=== PATIENT | female | born 1950 | race African-American/Black ===

== ENCOUNTER 2019-01-13 05:30 | Inpatient (IN) | payer MEDICARE ==
[~2019-01-13] VITALS: Ht 157.5 cm; Wt 152.0 kg
[2019-01-13] MEDS ORDERED: ALBUTEROL SULF 2.5 MG/0.5ML(0.5%) NEB SOLN NEB ONE (05:45)
[2019-01-13] MEDS ORDERED: IPRATROPIUM BROM 0.5 MG/2.5ML INH SOL NEB ONE (05:45)
[2019-01-13] MEDS ORDERED: methylPREDNISolone SOD SUCC 125 MG/2 ML VL IV ONE (05:45)
[2019-01-13 06:12] LABS: Basophils # (auto) 0 uL; Basophils % (auto) 0.3 % (0.0-2.0); Eosinophils # (auto) 0.1 uL; Eosinophils % (auto) 1.1 % (0.0-7.0); Hematocrit 39.7 % (36.0-46.0); Lymphocytes # (auto) 0.5 uL; Lymphocytes % (auto) 7.1 % (10.0-50.0); Mean Corpuscular Hemoglobin 31.1 pg (28.0-32.0); Mean Corpuscular Hgb Conc. 32.8 g/dL (32.0-36.0); Mean Corpuscular Volume 94.9 fL (80.0-100.0); Monocytes # (auto) 0.4 uL; Neutrophils # (auto) 6.4 uL; Neutrophils % (auto) 86.5 % (37.0-80.0); Platelet Count (auto) 172 10^3/uL (140-450); Red Blood Cells 4.18 10^6/uL (4.0-5.20); White Blood Cell 7.4 10^3/uL (4.4-10.8)
[2019-01-13 06:24] LABS: Albumin 3.1 g/dL (3.4-5.0); Calcium 7.9 mg/dL (8.5-10.1); Potassium 3.8 mmol/L (3.5-5.1)
[2019-01-13 06:28] LABS: BUN/Creatinine Ratio 14.3; Bilirubin, Total 0.5 mg/dL (0.2-1.0); Total Protein 7.2 g/dL (6.4-8.2)
[2019-01-13 06:52] LABS: Prothrombin Time 10.7 sec (9.27-12.13)
[2019-01-13 07:41] LABS: Lactic Acid w/Reflex 2.2 mmol/L (0.4-2.0)
[2019-01-13] MEDS ORDERED: PIPERACILLIN-TAZOB 3.375GM 100 ML IV ONE (09:30)
[2019-01-13] MEDS ORDERED: VANCOMYCIN 1GM/250ML 250 ML IV ONE (09:30)
[2019-01-13] MEDS ORDERED: FUROSEMIDE 40 MG/4 ML VIAL IV ONE ×2 (09:30→13:15)
[2019-01-13] MEDS ORDERED: ACETAMINOPHEN 500 MG TAB PO PRN (12:45)
[2019-01-13] MEDS ORDERED: LACTULOSE 20Gm/30ML SOLN PO PRN (12:45)
[2019-01-13] MEDS ORDERED: PROMETHAZINE HCL 25 MG/ML 1ML IV PRN (12:45)
[2019-01-13] MEDS ORDERED: HYDROcodone-ACET 5/325MG TAB PO PRN (12:45)
[2019-01-13] MEDS ORDERED: DEXTROSE (50%) 50ML SYRG IV PRN (12:45)
[2019-01-13] MEDS ORDERED: MORPHINE SULFATE 4 MG/ML SYR/VIAL IV PRN ×2 (12:45)
[2019-01-13] MEDS ORDERED: NITROGLYCERIN 0.4 MG SL TAB SL PRN (12:45)
[2019-01-13] MEDS ORDERED: ASPirin 81 mg TAB PO ONE (13:15)
[2019-01-13] MEDS ORDERED: POTASSIUM CHL 20 Meq TABLET PO ONE (13:15)
[2019-01-13] MEDS ORDERED: PANTOPRAZOLE 40 MG TAB PO ONE (13:15)
[2019-01-13] MEDS ORDERED: ENALAPRIL MALEATE 2.5 MG TAB PO ONE (13:15)
[2019-01-13] MEDS ORDERED: CARVEDILOL 3.125 MG TAB PO ONE (13:15)
[2019-01-13] MEDS ORDERED: NITROGLYCERIN 0.2MG/HR TOPICAL PATCH TD ONE (13:15)
[2019-01-13] MEDS ORDERED: ENOXAPARIN SOD 40 MG/0.4 ML SYRINGE SC ONE (13:15)
[2019-01-13] MEDS ORDERED: METOLAZONE 5 MG TAB PO ONE (13:30)
[2019-01-13] MEDS: SODIUM CHLOR 0.9% PF (SALINE LOCK) 10ML VIAL/SYR IV SCH ×2 (13:49→22:11)
[2019-01-13 14:26] LABS: Urine Bacteria NONE SEEN /hpf (None Seen); Urine Blood Negative /uL (Negative); Urine Specific Gravity 1.014 (1.001-1.035); Urine WBC 1 /hpf (0 - 5)
[2019-01-13] MEDS ORDERED: cefTRIAXone 1GM/50ML D5W 50 ML IV ONE (14:30)
[2019-01-13] MEDS ORDERED: CLINDAMYCIN 600MG IV 50 ML IV ONE (14:30)
[2019-01-13 14:48] LABS: Alcohol, Urine < 3.0 mg/dL (0-5); Amphetamine Screen, Urine NEGATIVE (NEGATIVE); Barbiturate Scree,Urine NEGATIVE (NEGATIVE); Benzodiazephine Screen, Urine NEGATIVE (NEGATIVE); Cannabinoid Screen, Urine NEGATIVE (NEGATIVE); Cocaine Screen, Urine NEGATIVE (NEGATIVE); Opiate Scree,Urine NEGATIVE (NEGATIVE); Phencyclidine Screen, Urine NEGATIVE (NEGATIVE)
[2019-01-13] MEDS: ACCU-CHEK COMFORT CURVE STRIP VI SCH ×2 (17:09→22:10)
[2019-01-13] MEDS: InsuLIN REG 1unit/0.01ml Soln (100units/ml) SC SCH ×2 (17:16→22:00)
[2019-01-13] MEDS: FUROSEMIDE 40 MG/4 ML VIAL IV SCH (18:49)
[2019-01-13 20:00] VITALS: BP 135/70
--- NOTE | 2019-01-13 21:16 | NUR ---
MED REC PATIENT UNABLE TO VERIFY ANY MEDICATIONS. PATIENT DOES NOT KNOW THE NAMES OF HER HOME MEDICATIONS. PER PATIENT, HER CAREGIVER, ARSALAN TO BRING IN THE LIST OF HER HOME MEDICATIONS TOMORROW.
[2019-01-13 22:00] VITALS: BP 135/70
[2019-01-13] MEDS ORDERED: CARVEDILOL 3.125 MG TAB PO SCH (22:00)
[2019-01-13] MEDS: CLINDAMYCIN 600MG IV 50 ML IV SCH (22:11)
[2019-01-13] MEDS: ATORVASTATIN 20 MG TAB PO SCH (22:16)
--- NOTE | 2019-01-14 00:29 | NUR ---
Positive Blood Cultures Received a call from [facility] that the patient's blood culture came back positive. The patient has gram + rods. Called and spoke to the hospitalist about the positive cultures. Explained the patient was already receiving Cleocin 600mg which she got at 2200hrs. He seemed satisfied with that antibiotic, no new orders given. Will continue to monitor.
[2019-01-14 05:00] VITALS: BP 131/69
--- NOTE | 2019-01-14 05:37 | NUR ---
shift note The patient slept most of the shift, until about 0300hrs. Since then she has been up stressed about her home situation. 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 I told her we will work on helping her with the issue first thing in the morning. I will put in a social service consult as well due to the fact that she doesn't seem to care for herself, let alone other people. Will continue to monitor the situation.
[2019-01-14 05:50] LABS: Basophils # (auto) 0 uL; Basophils % (auto) 0.1 % (0.0-2.0); Eosinophils # (auto) 0 uL; Eosinophils % (auto) 0.1 % (0.0-7.0); Hemoglobin 11.6 g/dL (12.2-16.2); Lymphocytes # (auto) 0.6 uL; Lymphocytes % (auto) 7.2 % (10.0-50.0); Mean Corpuscular Hemoglobin 30.8 pg (28.0-32.0); Mean Corpuscular Hgb Conc. 33.1 g/dL (32.0-36.0); Monocytes % (auto) 11.4 % (0.0-12.0); Neutrophils # (auto) 7.2 uL; Neutrophils % (auto) 81.2 % (37.0-80.0); Platelet Count (auto) 194 10^3/uL (140-450); Red Blood Cells 3.76 10^6/uL (4.0-5.20); Red Cell Distribution Width 14.4 % (11.8-14.3); White Blood Cell 8.9 10^3/uL (4.4-10.8)
[2019-01-14] MEDS: SODIUM CHLOR 0.9% PF (SALINE LOCK) 10ML VIAL/SYR IV SCH ×3 (06:00→22:27)
[2019-01-14 06:14] LABS: Albumin 2.6 g/dL (3.4-5.0); Potassium 3.9 mmol/L (3.5-5.1)
[2019-01-14 06:18] LABS: BUN/Creatinine Ratio 16.1; Bilirubin, Total 0.4 mg/dL (0.2-1.0); Total Protein 6.2 g/dL (6.4-8.2)
[2019-01-14] MEDS: ACCU-CHEK COMFORT CURVE STRIP VI SCH ×4 (06:37→22:00)
[2019-01-14] MEDS: InsuLIN REG 1unit/0.01ml Soln (100units/ml) SC SCH ×4 (06:37→22:00)
[2019-01-14] MEDS: CLINDAMYCIN 600MG IV 50 ML IV SCH ×3 (06:38→22:25)
[2019-01-14] MEDS: FUROSEMIDE 40 MG/4 ML VIAL IV SCH ×2 (06:39→17:39)
--- NOTE | 2019-01-14 07:20 | NUR ---
Opening Shift Note Assumed care of patient, awake and alert. No S/S of distress/SOB or pain. Instructed on POC-social service consult, continue IV antibiotics. Patient informed to call for assist PRN, will continue to monitor for changes Q1hr and PRN.
[2019-01-14 08:43] VITALS: BP 118/62
[2019-01-14] MEDS: cefTRIAXone 1GM/50ML D5W 50 ML IV SCH (08:59)
[2019-01-14] MEDS: ASPirin 81 mg TAB PO SCH (10:38)
[2019-01-14] MEDS: PANTOPRAZOLE 40 MG TAB PO SCH (10:38)
[2019-01-14] MEDS: POTASSIUM CHL 20 Meq TABLET PO SCH (10:38)
[2019-01-14] MEDS: METOLAZONE 5 MG TAB PO SCH (10:39)
[2019-01-14] MEDS: ENALAPRIL MALEATE 2.5 MG TAB PO SCH (10:39)
[2019-01-14] MEDS: ENOXAPARIN SOD 40 MG/0.4 ML SYRINGE SC SCH (10:40)
[2019-01-14] MEDS: NITROGLYCERIN 0.2MG/HR TOPICAL PATCH TD SCH (10:40)
--- NOTE | 2019-01-14 12:30 | NUR ---
Mindy Finney said she called APS and asked for help regarding patient's concern for some family members at home who has special needs and no one is able to take care of them. Mindy also spoke with Dr. Tabor regarding this concern of the patient.
[2019-01-14 13:00] VITALS: BP 121/65
[2019-01-14 17:00] VITALS: BP 105/68
--- NOTE | 2019-01-14 19:00 | NUR ---
Closing Note Patient is resting in bed, no complaints of pain and SOB and not in distress. Call light within reach and bed in lowest position. Care endorsed to night RN.
[2019-01-14] MEDS ORDERED: AMLO5TAB13 PO (20:01)
[2019-01-14] MEDS ORDERED: FURO40TA4 PO (20:01)
[2019-01-14] MEDS ORDERED: OMEP20TA PO (20:02)
[2019-01-14] MEDS ORDERED: ENA10T PO (20:02)
[2019-01-14] MEDS ORDERED: IBUP800T24 PO (20:03)
[2019-01-14 22:00] VITALS: BP 116/72
[2019-01-14] MEDS: ATORVASTATIN 20 MG TAB PO SCH (22:26)
[2019-01-15 05:00] VITALS: BP 127/67
--- NOTE | 2019-01-15 05:17 | NUR ---
Shift Note The patient had a restless night, seemed to be uncomfortable most of the night. She complained of cramping in her legs. Explained that she needed to move around more despite being in bed as she is just laying down and causing the cramping. The patient also had a hard time sleeping but asked too late to get a sleep aid. Otherwise she tolerated her treatments well, no real complaints of pain. Will continue to monitor.
[2019-01-15] MEDS: CLINDAMYCIN 600MG IV 50 ML IV SCH ×3 (06:21→21:31)
[2019-01-15] MEDS: FUROSEMIDE 40 MG/4 ML VIAL IV SCH ×2 (06:22→17:42)
[2019-01-15] MEDS: SODIUM CHLOR 0.9% PF (SALINE LOCK) 10ML VIAL/SYR IV SCH ×3 (06:29→21:40)
[2019-01-15] MEDS: ACCU-CHEK COMFORT CURVE STRIP VI SCH (06:32)
[2019-01-15] MEDS: InsuLIN REG 1unit/0.01ml Soln (100units/ml) SC SCH (06:32)
--- NOTE | 2019-01-15 08:00 | NUR ---
Opening Shift Note Assumed care of patient, sleeping and appears comfortable. No S/S of distress/SOB or pain. Will continue to monitor for changes Q1hr and PRN.
[2019-01-15] MEDS ORDERED: TIMO0.5S38 EACHEYE (09:58)
[2019-01-15] MEDS ORDERED: INFLUENZA QUAD 2018-2019 0.5 ML SYRG IM ONE ×2 (10:00→10:30)
[2019-01-15] MEDS ORDERED: PNEUMOCOCCAL VACC POLYS 25 MCG/0.5 ML VIAL IM ONE (10:00)
[2019-01-15] MEDS: cefTRIAXone 1GM/50ML D5W 50 ML IV SCH (10:05)
[2019-01-15] MEDS: ENOXAPARIN SOD 40 MG/0.4 ML SYRINGE SC SCH (10:06)
[2019-01-15] MEDS: POTASSIUM CHL 20 Meq TABLET PO SCH (10:06)
[2019-01-15] MEDS: ENALAPRIL MALEATE 2.5 MG TAB PO SCH (10:06)
[2019-01-15] MEDS: ASPirin 81 mg TAB PO SCH (10:06)
[2019-01-15] MEDS: PANTOPRAZOLE 40 MG TAB PO SCH (10:06)
[2019-01-15] MEDS: METOLAZONE 5 MG TAB PO SCH (10:07)
[2019-01-15] MEDS: NITROGLYCERIN 0.2MG/HR TOPICAL PATCH TD SCH (10:08)
[2019-01-15] MEDS ORDERED: LATA0.0015 OP (10:27)
[2019-01-15 13:00] VITALS: BP 133/70
--- NOTE | 2019-01-15 15:16 | NUR ---
SOB PATIENT IS ABLE TO GET UP TO THE BSC WITH ASSISTANCE. SHE GETS VERY SOB WITH ACTIVITY AND TAKES A LITTLE TIME TO RECOVER. LUNGS CLEAR, PATIENT IS ABLE TO BRING UP PHLEGM ON HER OWN. O2 DROPS A LITTLE WHEN SHE IS COUGHING BUT COMES BACK UP INTO THE LOW 90'S WITH REST.
[2019-01-15] MEDS: TIMOLOL MAL 0.5% OPTH(EYE) SOL 5ML EACHEYE SCH ×2 (16:35→21:32)
[2019-01-15 17:00] VITALS: BP 128/75
--- NOTE | 2019-01-15 19:05 | NUR ---
Opening Shift Note Assumed care of patient from day shift RN Tina. Pt is awake and alert and oriented x4. No S/S of distress/SOB or pain. Pt on 3L Oxymizer, respirations even equal and unlabored. Frederick catheter intact, patent and draining to gravity. Rectal tube intact, patent and draining. Instructed on POC and to call for assist PRN, will continue to monitor for changes Q1hr and PRN.
[2019-01-15] MEDS: ATORVASTATIN 20 MG TAB PO SCH (21:31)
[2019-01-15] MEDS: LATANOPROST 0.005 % OPTH(EYE) SOL 2.5ML EACHEYE SCH (21:40)
[2019-01-15 22:00] VITALS: BP 118/64
--- NOTE | 2019-01-15 22:20 | NUR ---
PT C/O LEAKING RECTAL TUBE TURNED PATIENT ON SIDE, RECTAL TUBE LEAKING. ADDED 20 ML AIR. PATIENT CLEANED AND LINENS CHANGED. WILL CONTINUE TO MONITOR FOR LEAKING.
[2019-01-16] MEDS: TEMAZEPAM 15 MG CAP PO PRN ×2 (00:47→22:10)
--- NOTE | 2019-01-16 02:09 | NUR ---
RECTAL TUBE PT C/O LEAKING FROM RECTAL TUBE. SMALL AMOUNT OF BROWN LIQUID STOOL LEAKING. CLEANED PATIENT AND CHANGED LINENS. WILL CONTINUE TO MONITOR FOR LEAKING.
[2019-01-16] MEDS: SODIUM CHLOR 0.9% PF (SALINE LOCK) 10ML VIAL/SYR IV SCH ×3 (05:14→21:58)
[2019-01-16] MEDS: CLINDAMYCIN 600MG IV 50 ML IV SCH ×3 (05:14→21:58)
[2019-01-16] MEDS: FUROSEMIDE 40 MG/4 ML VIAL IV SCH ×2 (05:15→18:05)
[2019-01-16 05:30] VITALS: BP 140/71
[2019-01-16] MEDS: LORazepam 0.5 MG TAB PO PRN (07:05)
--- NOTE | 2019-01-16 08:00 | NUR ---
Opening Shift Note Assumed care of patient, sleeping, appears comfortable. timber surveyor nurse reported patient was anxious this morning and was given PRN medication to help her relax. Patient has been worried about special needs children at home that have autism. No S/S of distress/SOB or pain. Will continue to monitor for changes Q1hr and PRN.
[2019-01-16] MEDS: cefTRIAXone 1GM/50ML D5W 50 ML IV SCH (08:48)
[2019-01-16] MEDS: ENOXAPARIN SOD 40 MG/0.4 ML SYRINGE SC SCH (08:49)
[2019-01-16] MEDS: NITROGLYCERIN 0.2MG/HR TOPICAL PATCH TD SCH (08:49)
[2019-01-16] MEDS: PANTOPRAZOLE 40 MG TAB PO SCH (08:50)
[2019-01-16] MEDS: POTASSIUM CHL 20 Meq TABLET PO SCH (08:50)
[2019-01-16] MEDS: TIMOLOL MAL 0.5% OPTH(EYE) SOL 5ML EACHEYE SCH ×2 (08:50→21:58)
[2019-01-16] MEDS: METOLAZONE 5 MG TAB PO SCH (08:50)
[2019-01-16] MEDS: ASPirin 81 mg TAB PO SCH (08:50)
[2019-01-16] MEDS: ENALAPRIL MALEATE 2.5 MG TAB PO SCH (08:50)
[2019-01-16 09:09] VITALS: BP 138/71
[2019-01-16 13:02] VITALS: BP 120/74
[2019-01-16] MEDS: ATORVASTATIN 20 MG TAB PO SCH (21:58)
[2019-01-16] MEDS: LATANOPROST 0.005 % OPTH(EYE) SOL 2.5ML EACHEYE SCH (21:58)
[2019-01-16 22:00] VITALS: BP 135/74
--- NOTE | 2019-01-16 23:04 | NUR ---
RASHAD CALLED HR 180 HR 180'S FOR APPROXIMATELY 2 MINUTES, HR NOW IN 80'S. PATIENT RESTING IN BED, O2 FOUND MISPLACED, REAPPLIED O2 3L OXYMIZER. NO S/S DISTRESS. WILL CONTINUE TO MONITOR.
--- NOTE | 2019-01-17 00:35 | NUR ---
PATIENT C/O ANXIETY PT FOUND WITH O2 OXYMIZER OFF. PLACED PT BACK ON 3L OXYMIZER, EDUCATED PT ON IMPORTANCE OF KEEPING OXYGEN ON. ADMINISTERED ATIVAN. PT C/O HAVING HALLUCINATIONS WHEN SHE IS GETTING ANXIOUS, EDUCATED PT ON IMPORTANCE OF OXYGEN AND THE EFFECTS IT CAN HAVE ON THE BRAIN RELATING TO HALLUCINATIONS AND ANXIETY. PT VERBALIZED UNDERSTANDING. WILL CONTINUE TO MONITOR.
[2019-01-17] MEDS: LORazepam 0.5 MG TAB PO PRN ×2 (00:44→20:07)
[2019-01-17 05:21] VITALS: BP 146/74
[2019-01-17] MEDS: FUROSEMIDE 40 MG/4 ML VIAL IV SCH ×2 (05:49→18:07)
[2019-01-17] MEDS: CLINDAMYCIN 600MG IV 50 ML IV SCH ×3 (05:49→22:28)
[2019-01-17] MEDS: SODIUM CHLOR 0.9% PF (SALINE LOCK) 10ML VIAL/SYR IV SCH ×3 (05:49→22:29)
--- NOTE | 2019-01-17 07:50 | NUR ---
OPENING SHIFT NOTE ASSUMED CARE OF PATIENT. PATIENT AWAKE AND ALERT SITTING UP IN BED. NO S/S OF DISTRESS OR SOB NOTED. BED IN LOWEST LOCKED POSITION, CALL LIGHT WITHIN REACH. WILL CONTINUE TO MONITOR.
[2019-01-17 09:00] VITALS: BP 125/70
--- NOTE | 2019-01-17 09:10 | NUR ---
AT BEDSIDE DR Edwin SOSA AT BEDSIDE AT THIS TIME. NEW ORDERS RECEIVED. CONTINUING TO MONITOR.
--- NOTE | 2019-01-17 09:20 | NUR ---
CULTURE/SENSITIVITY CALLED LAB AND SPOKE WITH YELITZA. PER YELITZA LAB SENT OUT SENSITIVITY AND WOULD TAKE ABOUT X1 WEEK FOR RESULTS. WILL CONTINUE TO MONITOR.
[2019-01-17] MEDS: TIMOLOL MAL 0.5% OPTH(EYE) SOL 5ML EACHEYE SCH ×2 (09:56→22:28)
[2019-01-17] MEDS: ENOXAPARIN SOD 40 MG/0.4 ML SYRINGE SC SCH (09:58)
[2019-01-17] MEDS: PANTOPRAZOLE 40 MG TAB PO SCH (09:58)
[2019-01-17] MEDS: POTASSIUM CHL 20 Meq TABLET PO SCH (09:58)
[2019-01-17] MEDS: METOLAZONE 5 MG TAB PO SCH (09:58)
[2019-01-17] MEDS: ASPirin 81 mg TAB PO SCH (09:58)
[2019-01-17] MEDS: cefTRIAXone 1GM/50ML D5W 50 ML IV SCH (09:58)
[2019-01-17] MEDS: ENALAPRIL MALEATE 2.5 MG TAB PO SCH (09:59)
[2019-01-17] MEDS: NITROGLYCERIN 0.2MG/HR TOPICAL PATCH TD SCH (09:59)
[2019-01-17 13:24] VITALS: BP 126/73
--- NOTE | 2019-01-17 14:43 | NUR ---
Nutrition Assessment Notes please see attached link for complete assessment Est. Needs ABW [id number] kcal (11-17 kcal/kgABW), 80-101 gms pro (0.8-1.0 gms/kgABW d/t elev RFT). Will continue to monitor pertinent labs and reassess nutrient needs prn Addendum: 01/17/19 at [address] Amended: Links added.
[2019-01-17 17:00] VITALS: BP 114/75
--- NOTE | 2019-01-17 19:30 | NUR ---
END OF SHIFT NOTE PATIENT AWAKE AND ALERT SITTING UP IN BED. NO S/S OF DISTRESS OR SOB. BED IN LOWEST LOCKED POSITION, CALL LIGHT WITHIN REACH. CARE ENDORSED TO NOC RN.
--- NOTE | 2019-01-17 19:30 | NUR ---
RECEIVED PT FROM DAY RN POC REVIEWED
[2019-01-17 21:00] VITALS: BP 122/69
--- NOTE | 2019-01-17 22:20 | NUR ---
resting with eyes closed, call light within reach bed alarm intact
[2019-01-17] MEDS: LATANOPROST 0.005 % OPTH(EYE) SOL 2.5ML EACHEYE SCH (22:28)
[2019-01-17] MEDS: ATORVASTATIN 20 MG TAB PO SCH (22:29)
[2019-01-18] MEDS: TEMAZEPAM 15 MG CAP PO PRN (00:53)
--- NOTE | 2019-01-18 02:36 | NUR ---
total bed bath given and linen change pts rectal tube out pts stool soft
[2019-01-18 05:00] VITALS: BP 123/59
[2019-01-18] MEDS: CLINDAMYCIN 600MG IV 50 ML IV SCH ×2 (05:33→14:00)
[2019-01-18] MEDS: FUROSEMIDE 40 MG/4 ML VIAL IV SCH (05:34)
[2019-01-18] MEDS: SODIUM CHLOR 0.9% PF (SALINE LOCK) 10ML VIAL/SYR IV SCH ×2 (05:34→15:41)
--- NOTE | 2019-01-18 06:52 | NUR ---
REPORT GIVEN TO AM NURSE POC REVIEWED
[2019-01-18 09:00] VITALS: BP 177/66
[2019-01-18] MEDS: cefTRIAXone 1GM/50ML D5W 50 ML IV SCH (09:22)
[2019-01-18] MEDS: ASPirin 81 mg TAB PO SCH (09:44)
[2019-01-18] MEDS: PANTOPRAZOLE 40 MG TAB PO SCH (09:44)
[2019-01-18] MEDS: POTASSIUM CHL 20 Meq TABLET PO SCH (09:44)
[2019-01-18] MEDS: TIMOLOL MAL 0.5% OPTH(EYE) SOL 5ML EACHEYE SCH (09:44)
[2019-01-18] MEDS: ENALAPRIL MALEATE 2.5 MG TAB PO SCH (09:46)
[2019-01-18] MEDS: NITROGLYCERIN 0.2MG/HR TOPICAL PATCH TD SCH (09:47)
[2019-01-18] MEDS: METOLAZONE 5 MG TAB PO SCH (09:47)
[2019-01-18] MEDS: ENOXAPARIN SOD 40 MG/0.4 ML SYRINGE SC SCH (09:47)
--- NOTE | 2019-01-18 10:38 | NUR ---
SS TO GET CHOICE LETTER AND PREFERENCE FOR HH FOR THIS PT AND TO NOTIFY ME WHEN THEY DO
--- NOTE | 2019-01-18 12:58 | NUR ---
VERÓNICA FROM [facility] HAS ACCEPTED PT AND WILL START 24-48 HRS POST D/C
[2019-01-18 13:00] VITALS: BP 124/79
--- NOTE | 2019-01-18 16:14 | NUR ---
Paged Dr. Tabor. The patient needs a walker at home. Spoke with Dr. Edwin Tabor regarding the patient's need. The physician ordered a social sciences lecturer consult for a walker at home.
--- NOTE | 2019-01-18 16:16 | NUR ---
Discharge instructions given as ordered. Encourage to follow up with PMD as instructed. All questions and concerns addressed. Patient verbalized understanding. Medication reconciliation form completed and copy given to patient. Home medications held in Pharmacy returned to patient, and needed vaccines given. IV removed with catheter intact, pressure dressing applied, colvin catheter removed. Telemetry unit returned to ICU. Patient taken to vehicle via wheelchair with all personal belongings, accompanied by staff and family member. No distress noted at time of departure.
--- NOTE | 2019-01-18 16:17 | NUR ---
PER PRIMARY RN, JOSEF WILL GET ORDER FOR WALKER FOR PT.
--- NOTE | 2019-01-18 17:02 | NUR ---
assessment Patient is a 68 year old female who is alert and oriented. Patients cognitive abilities are intact. Prior to admission patient lived home with family and functioned independently. Patient informed me she is able to care for her own ADLs. Per patient she will return home to her prior living arrangements post discharge and family will transport her home. 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 I informed patient she has a right to participate in any and all discharge planning. Patient is aware of visiting hours on the hospital floor. I informed patient she has a right to privacy. Patient does not have a POA and advanced directive. I have offered patient information on POA and advanced directives. I informed the patient the advantages and benefits of having an Advanced Directive. Patient verbalized understanding and agreed to discharge plan. Per ss consult patient is weak and doubts that she can care for two people with special needs on her own. Patient informed me she has a caregiver for her special needs adults. Per ss consult [facility] for PT, oxygen. Patient has been given a list of medicare providers. Per patient she has no preference on who provides service. MD order has been sent to [facility]. Per Jean service will start on 01/19/19. Patient has been notified. 02 has been delivered to bedside. Addendum: 01/18/19 at 1709 by Mindy Haley Amended: Links added.
--- NOTE | 2019-01-19 08:58 | NUR ---
CANDIE ORDER FAXED TO [facility]. I WILL CALL [facility] TO F/U ON DELIVERY TO PT'S HOME
--- NOTE | 2019-01-19 14:28 | NUR ---
PER PHILIPPE AT [facility] WALKER HAD BEEN DELIVERED TO PT
== END 2019-01-18 16:20 | disposition home health service (06) | DRG 871 ==
LOC: EDBD 05:30 → ER 05:30 → TELE 12:45 → TELE-EAST 19:48
PROVIDERS: ADMIT Internal Medicine; ATTEND Family Medicine
DX: A41.89 Other specified sepsis (principal); I50.43 Acute on chronic combined systolic (congestive) and diastolic (congestive) heart failure; L03.115 Cellulitis of right lower limb; Z68.44 Body mass index [BMI] 60.0-69.9, adult; I11.0 Hypertensive heart disease with heart failure; E11.65 Type 2 diabetes mellitus with hyperglycemia; E66.01 Morbid (severe) obesity due to excess calories; E78.00 Pure hypercholesterolemia, unspecified; I25.10 Atherosclerotic heart disease of native coronary artery without angina pectoris; I48.91 Unspecified atrial fibrillation; J44.9 Chronic obstructive pulmonary disease, unspecified; Z99.81 Dependence on supplemental oxygen; Z79.899 Other long term (current) drug therapy
CPT/HCPCS: 36415; 36600; 51702; 71045; 71275; 80053; 80061; 80307; 81001; 82550; 82805; 82962; 83036; 83605; 83735; 83880; 84443; 84484; 85025; 85379; 85610; 85652; 85730; 86141; 87040; 90674; 93005; 93306; 93970; 94640; 96365; 96366; 96367; 96368; 96375; 96376; 97163; G0378; J0696; J1815; J2543; J3490

== ENCOUNTER 2019-12-23 01:12 | Inpatient (IN) | payer MEDICARE, OTHER ==
[~2019-12-23] VITALS: Ht 172.7 cm; Wt 104.7 kg
[~2019-12-23 01:12] MED LIST: AMLO5TAB15 PO; ENAL10TA PO; FURO40TA4 PO; IBUP800T24 PO; LATA0.0019 OP; OMEP20TA PO; TIMO0.5S66 EACHEYE
[2019-12-23] MEDS ORDERED: methylPREDNISolone SOD SUCC 125 MG/2 ML VL ONE (01:16)
[2019-12-23] MEDS ORDERED: FUROSEMIDE 40 MG/4 ML VIAL ONE (01:19)
[2019-12-23] MEDS ORDERED: IPRATROPIUM BROM 0.5 MG/2.5ML INH SOL ONE (01:30)
[2019-12-23] MEDS ORDERED: ALBUTEROL SULF 2.5 MG/0.5ML(0.5%) NEB SOLN ONE (01:30)
[2019-12-23] MEDS ORDERED: IPRATROPIUM BROM 0.5 MG/2.5ML INH SOL NEB ONE (01:45)
[2019-12-23] MEDS ORDERED: LORazepam 2MG/ML-1ML VIAL IV ONE (01:45)
[2019-12-23] MEDS ORDERED: FUROSEMIDE 40 MG/4 ML VIAL IV ONE (01:45)
[2019-12-23] MEDS ORDERED: methylPREDNISolone SOD SUCC 125 MG/2 ML VL IV ONE (01:45)
[2019-12-23] MEDS ORDERED: ALBUTEROL SULF 2.5 MG/0.5ML(0.5%) NEB SOLN NEB ONE (01:45)
[2019-12-23 02:14] LABS: Basophils # (auto) 0.1 uL; Basophils % (auto) 0.7 % (0.0-2.0); Eosinophils # (auto) 0.3 uL; Hematocrit 34.9 % (36.0-46.0); Hemoglobin 11.2 g/dL (12.2-16.2); Lymphocytes # (auto) 0.8 uL; Lymphocytes % (auto) 8.6 % (10.0-50.0); Mean Corpuscular Hemoglobin 30.4 pg (28.0-32.0); Mean Corpuscular Hgb Conc. 32.1 g/dL (32.0-36.0); Mean Corpuscular Volume 94.5 fL (80.0-100.0); Monocytes # (auto) 0.6 uL; Monocytes % (auto) 5.9 % (0.0-12.0); Neutrophils # (auto) 7.6 uL; Neutrophils % (auto) 81.8 % (37.0-80.0); Platelet Count (auto) 185 10^3/uL (140-450); Red Blood Cells 3.69 10^6/uL (4.0-5.20); Red Cell Distribution Width 13.6 % (11.8-14.3); White Blood Cell 9.3 10^3/uL (4.4-10.8)
[2019-12-23 02:28] LABS: INR 1.06 (0.9-1.15); Partial Thromboplastin Time 26.6 sec (23.64-32.05)
[2019-12-23 02:30] LABS: Albumin 3.6 g/dL (3.4-5.0); BUN/Creatinine Ratio 12.4; Calcium 8.4 mg/dL (8.5-10.1); Potassium 4.5 mmol/L (3.5-5.1)
[2019-12-23 02:42] LABS: Bilirubin, Total 0.6 mg/dL (0.2-1.0); Total Protein 7.8 g/dL (6.4-8.2)
[2019-12-23 05:23] LABS: Urine Bacteria NONE SEEN /hpf (None Seen); Urine Blood Negative /uL (Negative); Urine Specific Gravity 1.006 (1.001-1.035); Urine WBC <1 /hpf (0 - 5)
[2019-12-23] MEDS ORDERED: MORPHINE SULF INJ 2 MG/ML SYRINGE 1ML IV PRN ×2 (06:30→07:00)
[2019-12-23] MEDS ORDERED: ONDANSETRON HCL 4 MG/2 ML VIAL IV PRN (06:30)
[2019-12-23] MEDS ORDERED: NITROGLYCERIN 0.4 MG SL TAB SL PRN (06:30)
--- NOTE | 2019-12-23 06:56 | NUR ---
Respiratory note: PT TAKEN OFF OF BIPAP, AND PLACED ON 4L NC. PT TOLERATING CHANGE WELL. SPO2 99% ON 4LNC, HR 88, RR 26 BS CLEAR/DIMINISHED BILATERALLY. NO RESPIRATORY DISTRESS NOTED.
[2019-12-23 09:00] VITALS: BP 151/90
--- NOTE | 2019-12-23 09:18 | NUR ---
Telemetry admit from ER RAGHAV EGAN admitted to Telemetry unit. Patient oriented to Demi Louis RN primary RN, unit, room, bed, and unit policies regarding patient care and visiting hours. Patient now on continuous telemetry monitoring, tele box # [id number]. Patient placed on bedside oxygen, weighed by bedscale and encouraged to call if they need something. All questions and concerns addressed, patient verbalized understanding.
[2019-12-23 09:33] VITALS: BP 153/81
[2019-12-23] MEDS ORDERED: CARV6.2551 PO (10:00)
[2019-12-23] MEDS ORDERED: amLODIPine BESYLATE 5 MG TAB PO SCH (10:00)
[2019-12-23] MEDS ORDERED: ENALAPRIL MALEATE 10 MG TAB PO SCH (10:00)
[2019-12-23] MEDS ORDERED: AML5T PO (10:00)
[2019-12-23] MEDS ORDERED: FAMOTIDINE 20 MG TAB PO SCH (10:00)
[2019-12-23] MEDS: ASPirin 81 mg TAB PO SCH (10:48)
[2019-12-23] MEDS ORDERED: OPTISON 3ml Vial for INJ IV ONE ×3 (11:36→12:45)
--- NOTE | 2019-12-23 12:20 | NUR ---
Tech at bedside For bubble study and echo.
[2019-12-23 13:00] VITALS: BP 130/74
--- NOTE | 2019-12-23 15:31 | NUR ---
MD at bedside Dr. Kellogg, updated pt on POC.
[2019-12-23] MEDS ORDERED: FUROSEMIDE 20 MG/2 ML VIAL IV ONE (17:00)
[2019-12-23 17:31] VITALS: BP 145/75
[2019-12-23] MEDS: FUROSEMIDE 40 MG/4 ML VIAL IV SCH (17:45)
[2019-12-23] MEDS ORDERED: FUROSEMIDE 20 MG/2 ML VIAL IV SCH (18:00)
--- NOTE | 2019-12-23 19:22 | NUR ---
Endorsed care to NOC RN.
[2019-12-23] MEDS ORDERED: POLYETHYLENE GLYCOL 17 GM PWDR PO ONE (19:30)
--- NOTE | 2019-12-23 19:37 | NUR ---
Respiratory note: AT BEDSIDE FOR MED DEVENDRA SANCHEZ.
[2019-12-23] MEDS: IPRATROPIUM BROM 0.5 MG/2.5ML INH SOL NEB SCH (19:48)
[2019-12-23 20:10] VITALS: BP 101/53
--- NOTE | 2019-12-23 20:10 | NUR ---
Opening Shift Note Assumed care of patient, awake and alert. No S/S of distress/SOB or pain. Patient is on 3 liters of oxygen via nasal cannula. Instructed on POC and to call for assist PRN, will continue to monitor for changes Q1hr and PRN.
--- NOTE | 2019-12-23 20:20 | NUR ---
IV removal due to fluid leakage due to catheter coming out of site IV DC'd with clean sterile technique, catheter fully intact. Pressure dressing applied to site. Patient tolerated well.
[2019-12-23] MEDS: DOCUSATE SOD 100 MG CAP PO SCH (21:01)
--- NOTE | 2019-12-23 21:17 | NUR ---
4 BEATS OF VTACH VOCATIONAL TRAINER CALLED TO NOTIFY THAT THE PATIENT HAD 4 BEATS OF VTACH AT 2100. PATIENT CONVERTED BACK TO SINUS RHYTHM. PATIENT DENIES CHEST PAIN AND DENIES SHORTNESS OF BREATH. PATIENT ASYMPTOMATIC. VITAL SIGNS STABLE: BP OF 123/70, HR OF 94, OXYGEN SATURATION OF 100%, AND TEMPERATURE OF 98.0. DR. HOLDER NOTIFIED AND NEW ORDERS RECEIVED: STAT MAGNESIUM LAB AND TO GIVE 2 GRAMS MAGNESIUM IV IF MAGNESIUM LEVEL LESS THAN OR EQUAL TO 1.9 AND TO NOTIFY MILD DISABILITIES TEACHER.
--- NOTE | 2019-12-23 21:33 | NUR ---
DR. DALE PAGED REGARDING PATIENT HAVING 4 BEATS OF VTACH. AWAITING CALLBACK AT THIS TIME.
[2019-12-23 22:00] VITALS: BP 101/53
[2019-12-23] MEDS ORDERED: ATORVASTATIN 20 MG TAB PO SCH (22:00)
--- NOTE | 2019-12-23 23:20 | NUR ---
IV insertion IV access obtained, via clean sterile technique by inserting 22 gauge catheter at right forearm after 2 attempts by Brianne BLUE. IV secured properly. No trauma to site. Patient tolerated well. NOTE: []
[2019-12-23] MEDS: MAGNESIUM SULFATE 1GM/100ML 100 ML IV SCH (23:27)
[2019-12-24] VITALS (7 sets, daily range): BP systolic 106–136; BP diastolic 56–71
[2019-12-24] MEDS: MAGNESIUM SULFATE 1GM/100ML 100 ML IV SCH (00:40)
[2019-12-24] MEDS: ACETAMINOPHEN 325 MG TAB PO PRN (02:45)
--- NOTE | 2019-12-24 03:11 | NUR ---
8 BEATS OF VTACH FILM FLAT INSPECTOR CALLED TO NOTIFY THAT THE PATIENT HAD 8 BEATS OF VTACH. THE PATIENT CONVERTED TO SINUS RHYTHM. THE PATIENT IS ASYMPTOMATIC. THE PATIENT DENIES CHEST PAIN AND DENIES SHORTNESS OF BREATH. PATIENT'S VITAL SIGNS STABLE: BLOOD PRESSURE OF 117/67, HR OF 88, PULSE OXIMETER READING OF 96%, TEMPERATURE OF 98.3 F, AND RESPIRATORY RATE OF 18. 12 LEAD EKG DONE.
--- NOTE | 2019-12-24 03:30 | NUR ---
MALENA ACCOUNTS RECEIVABLE COORDINATOR NOTIFIED REGARDING 8 BEATS OF VTACH AND READ 12 LEAD EKG NO NEW ORDERS RECEIVED.
--- NOTE | 2019-12-24 04:20 | NUR ---
CALLBACK RECEIVED FROM DR. DALE REGARDING 4 BEATS OF VTACH NEW ORDERS RECEIVED.
[2019-12-24 05:38] LABS: Basophils # (auto) 0 uL; Basophils % (auto) 0.2 % (0.0-2.0); Eosinophils # (auto) 0 uL; Eosinophils % (auto) 0.1 % (0.0-7.0); Hematocrit 31.6 % (36.0-46.0); Hemoglobin 10.5 g/dL (12.2-16.2); Lymphocytes # (auto) 0.8 uL; Lymphocytes % (auto) 10.6 % (10.0-50.0); Mean Corpuscular Hgb Conc. 33.2 g/dL (32.0-36.0); Mean Corpuscular Volume 93.4 fL (80.0-100.0); Monocytes # (auto) 0.8 uL; Monocytes % (auto) 11.4 % (0.0-12.0); Neutrophils # (auto) 5.5 uL; Neutrophils % (auto) 77.7 % (37.0-80.0); Platelet Count (auto) 170 10^3/uL (140-450); Red Blood Cells 3.39 10^6/uL (4.0-5.20); Red Cell Distribution Width 13.7 % (11.8-14.3); White Blood Cell 7.1 10^3/uL (4.4-10.8)
[2019-12-24] MEDS: FUROSEMIDE 40 MG/4 ML VIAL IV SCH ×2 (05:46→19:30)
--- NOTE | 2019-12-24 05:50 | NUR ---
MIRANDA CARE PROVIDED WITH MIRANDA CARE WIPES.
[2019-12-24 06:00] LABS: Calcium 8.4 mg/dL (8.5-10.1); Potassium 4.4 mmol/L (3.5-5.1)
--- NOTE | 2019-12-24 07:00 | NUR ---
CLOSING NOTE No S/S of distress/SOB or pain. Patient is on 3 liters of oxygen via nasal cannula.
[2019-12-24] MEDS: IPRATROPIUM BROM 0.5 MG/2.5ML INH SOL NEB SCH ×3 (07:13→18:42)
[2019-12-24] MEDS ORDERED: INFLUENZA QUAD 2019-2020 0.5ml SYRG IM ONE (08:15)
[2019-12-24] MEDS ORDERED: dilTIAZem 25 MG/5 ML VIAL IV PRN (08:15)
--- NOTE | 2019-12-24 08:15 | NUR ---
Opening Note Assumed care of patient she is A & O x4, no s/s of distress, POC discussed with patient. Bed is in lowest, locked position, call light within reach. Will continue to monitor Q1h and PRN.
--- NOTE | 2019-12-24 08:20 | NUR ---
Dr. Hernandez at bedside Procedure discussed with patient for heart cath and AICD placement. Patient agrees. Orders received, read back and verified. Will place accordingly.
--- NOTE | 2019-12-24 11:40 | NUR ---
Dr. Godfrey Kellogg at bedside.
[2019-12-24] MEDS: ASPirin 81 mg TAB PO SCH (11:41)
[2019-12-24] MEDS: CARVEDILOL 3.125 MG TAB PO SCH ×2 (11:42→22:32)
[2019-12-24] MEDS: PANTOPRAZOLE 40 MG TAB PO SCH (11:42)
[2019-12-24] MEDS: DOCUSATE SOD 100 MG CAP PO SCH ×2 (11:42→22:32)
--- NOTE | 2019-12-24 18:30 | NUR ---
Colvin Catheter Removed per orders Clean technique used, 150 ml urine voided in colvin, patient tolerated well. Patient will use bedside commode.
[2019-12-24] MEDS: ALBUTEROL SULF 2.5 MG/0.5ML(0.5%) NEB SOLN NEB PRN (18:42)
[2019-12-25] MEDS: TEMAZEPAM 15 MG CAP PO PRN (00:10)
[2019-12-25 05:00] VITALS: BP 119/70
[2019-12-25] MEDS: FUROSEMIDE 40 MG/4 ML VIAL IV SCH ×2 (06:00→18:25)
[2019-12-25] MEDS: IPRATROPIUM BROM 0.5 MG/2.5ML INH SOL NEB SCH ×3 (06:15→19:56)
[2019-12-25] MEDS: ALBUTEROL SULF 2.5 MG/0.5ML(0.5%) NEB SOLN NEB PRN ×2 (06:15→19:56)
--- NOTE | 2019-12-25 06:33 | NUR ---
PT INFORMED RN THAT SHE WAS NOT GOING TO TAKE LASIX BECAUSE SHE IS "PEEING TOO MUCH ALREADY." WAGNER MEREDITH IN ROOM AND PRIVY TO CONVERSATION.
--- NOTE | 2019-12-25 07:54 | NUR ---
RECEIVED REPORT AND ASSUMED CARE OF PT. A/OX4. DENIED S/S ACUTE DISTRESS. UPDATE PT WITH POC. BED AT LOWEST POSITION. CALL LIGHT AND BELONGINGS WITHIN REACH. WILL CONT TO MONITOR.
[2019-12-25 09:00] VITALS: BP 120/66
[2019-12-25] MEDS: CARVEDILOL 3.125 MG TAB PO SCH ×2 (10:01→21:43)
[2019-12-25] MEDS: DOCUSATE SOD 100 MG CAP PO SCH ×2 (10:01→21:41)
[2019-12-25] MEDS: PANTOPRAZOLE 40 MG TAB PO SCH (10:01)
[2019-12-25] MEDS: ASPirin 81 mg TAB PO SCH (10:02)
[2019-12-25] MEDS: SACUBITRIL-VALSARTAN 24mg/26mg TAB PO SCH ×2 (10:03→21:41)
[2019-12-25 13:00] VITALS: BP 127/62
--- NOTE | 2019-12-25 15:45 | NUR ---
NUTRITION ASSESSMENT NOTES Please refer to link notes of nutrition screen form filed under the intervention section of the plan of care for further details. Est. Needs: 1650 kcal to 2250 kcal (15-20 kcal/kgBW), 64 gms to 77 gms pro (1.0-1.2 gms/kgIBW: 64 kg). Will continue to monitor pertinent labs and reassess nutrient need prn Thank you. Addendum: 12/25/19 at [address] Amended: Links added.
[2019-12-25 17:00] VITALS: BP 135/64
--- NOTE | 2019-12-25 19:40 | NUR ---
Opening Shift Note Assumed care of patient, awake and alert. No S/S of distress/SOB or pain. Instructed on POC and to be NPO after MN. For [facility] tomorrow, patient verbalized understanding. Instructed to call for assist PRN, call light within reach, will continue to monitor for changes Q1hr and PRN.
[2019-12-25 20:00] VITALS: BP 125/68
[2019-12-25] MEDS: TIMOLOL MAL 0.5% OPTH(EYE) SOL 5ML EACHEYE SCH (21:41)
[2019-12-25] MEDS: LATANOPROST 0.005 % OPTH(EYE) SOL 2.5ML OP SCH (21:42)
[2019-12-25] MEDS: ACETAMINOPHEN 325 MG TAB PO PRN (21:42)
[2019-12-25 22:00] VITALS: BP 125/68
[2019-12-26] MEDS: TEMAZEPAM 15 MG CAP PO PRN ×2 (00:24→22:04)
[2019-12-26 05:00] VITALS: BP 118/58
--- NOTE | 2019-12-26 05:43 | NUR ---
IV insertion IV access obtained, via clean sterile technique by inserting 22 gauge catheter at LW after [1] attempt(s). IV secured properly. No trauma to site. Patient tolerated well. NOTE: []
[2019-12-26] MEDS: IPRATROPIUM BROM 0.5 MG/2.5ML INH SOL NEB SCH ×4 (06:00→19:12)
[2019-12-26] MEDS: ALBUTEROL SULF 2.5 MG/0.5ML(0.5%) NEB SOLN NEB PRN ×4 (06:02→19:12)
[2019-12-26] MEDS: FUROSEMIDE 40 MG/4 ML VIAL IV SCH ×3 (06:39→17:42)
--- NOTE | 2019-12-26 06:43 | NUR ---
Patient refused scheduled Lasix at this time despite explaining the importance of it. Per patient, she wants to get it after the procedure. Will endorse to dayshift RN
[2019-12-26 07:44] LABS: Basophils # (auto) 0.1 uL; Basophils % (auto) 1.2 % (0.0-2.0); Eosinophils # (auto) 0.5 uL; Eosinophils % (auto) 8.8 % (0.0-7.0); Hematocrit 37.9 % (36.0-46.0); Hemoglobin 12.7 g/dL (12.2-16.2); Lymphocytes # (auto) 1.5 uL; Lymphocytes % (auto) 25.2 % (10.0-50.0); Mean Corpuscular Hemoglobin 31.2 pg (28.0-32.0); Mean Corpuscular Hgb Conc. 33.6 g/dL (32.0-36.0); Monocytes # (auto) 0.7 uL; Monocytes % (auto) 11.1 % (0.0-12.0); Neutrophils # (auto) 3.2 uL; Neutrophils % (auto) 53.7 % (37.0-80.0); Nucleated Red Blood Cells % 0.2 %; Platelet Count (auto) 176 10^3/uL (140-450); Red Blood Cells 4.07 10^6/uL (4.0-5.20); Red Cell Distribution Width 13.4 % (11.8-14.3)
--- NOTE | 2019-12-26 07:45 | NUR ---
Patient left to cath lab manager.
[2019-12-26] MEDS ORDERED: LIDOCAINE 2%HCL (LOCAL ANESTH.) INJ 20ML MDV ONE (07:55)
[2019-12-26] MEDS ORDERED: IODIXANOL 320MG/ML 100ML BTL IV ONE (07:55)
[2019-12-26 08:03] LABS: INR 1.07 (0.9-1.15); Partial Thromboplastin Time 25.6 sec (23.64-32.05)
[2019-12-26 08:08] LABS: BUN/Creatinine Ratio 19.6; Calcium 8.4 mg/dL (8.5-10.1); Potassium 4.1 mmol/L (3.5-5.1)
[2019-12-26] MEDS ORDERED: HEPARIN SODIUM (PORCINE) 5000 UNITS/ML 1ML VIAL ONE (08:31)
[2019-12-26] MEDS ORDERED: ANGIOMAX 250 MG VIAL IV ONE (08:31)
[2019-12-26] MEDS ORDERED: VERAPAMIL 2.5MG/ML INJ 2ML VIAL IV ONE (08:31)
[2019-12-26] MEDS ORDERED: fentaNYL CITRATE 100 MCG/2 ML VL ONE (08:32)
[2019-12-26] MEDS ORDERED: SODIUM CHL 0.9% 0 ML ONE (08:32)
[2019-12-26] MEDS ORDERED: MIDAZOLAM HCL 1MG/1ML-2 ML VIAL ONE (08:32)
[2019-12-26] MEDS ORDERED: NITROGLYCERIN 5MG/ML 10ML VIAL IV ONE (08:35)
--- NOTE | 2019-12-26 09:00 | NUR ---
Patient out for procedure for 0900 vitals.-EW
[2019-12-26] MEDS: ASPirin 81 mg TAB PO SCH (12:00)
[2019-12-26] MEDS: DOCUSATE SOD 100 MG CAP PO SCH ×2 (12:42→22:04)
[2019-12-26] MEDS: PANTOPRAZOLE 40 MG TAB PO SCH (12:42)
[2019-12-26] MEDS: SACUBITRIL-VALSARTAN 24mg/26mg TAB PO SCH ×2 (12:42→22:02)
[2019-12-26] MEDS: TIMOLOL MAL 0.5% OPTH(EYE) SOL 5ML EACHEYE SCH ×2 (12:42→22:01)
[2019-12-26] MEDS: CARVEDILOL 3.125 MG TAB PO SCH ×2 (12:43→22:04)
--- NOTE | 2019-12-26 12:52 | NUR ---
Patient has orders for home health. Referral sent to [facility] [phone], placed a follow up call, spoke with Akiko and was advised that they will accept this patient. Antonina [phone] was sent the referral for auth.
--- NOTE | 2019-12-26 16:40 | NUR ---
assessment Patient is a 69 year old female who is alert and oriented. Patients cognitive abilities are intact. Prior to admission patient lived home with family and functioned independently. Patient informed me she is able to care for her own ADLs. Per patient she will return home to her prior living arrangements post discharge and family will transport her home. Patient informed me she has a fww and a cane for home use. Patients PCP is Dr Swann. I informed patient of her consult for home health evaluation. Patient agreed. I informed patient she has a right to speak to a social economist regarding all care. I informed patient she has a right to participate in any and all discharge planning. Patient is aware of visiting hours on the hospital floor. I informed patient she has a right to privacy. Patient does not have a POA and advanced directive. I have offered patient information on POA and advanced directives. I informed the patient the advantages and benefits of having an Advanced Directive. Patient verbalized understanding and agreed to discharge plan. Addendum: 12/26/19 at 1642 by Mindy VERDE Amended: Links added.
[2019-12-26 17:00] VITALS: BP 106/57
--- NOTE | 2019-12-26 19:00 | NUR ---
Opening Shift Note Assumed care of patient, awake and alert. No S/S of distress/SOB or pain. Instructed on POC and to call for assist PRN, will continue to monitor for changes Q1hr and PRN. Pt in lowest possible position with bed rails up x2. Call light within reach. Will continue to monitor.
[2019-12-26 20:00] VITALS: BP 121/69
--- NOTE | 2019-12-26 21:00 | NUR ---
Pt anxious Walked into pts room to find pt was crying. Pt stated that she was anxious because she was worried about her children. Pt states that she has two adult children who have downs syndrome and autism. She is afraid that she will not get them back because she is in the hospital. Pt was calmed after talking to her.
--- NOTE | 2019-12-26 22:00 | NUR ---
FLU VACCINE Pt stated that she would like her flu vaccine upon discharge.
[2019-12-26] MEDS: LATANOPROST 0.005 % OPTH(EYE) SOL 2.5ML OP SCH (22:01)
[2019-12-26 22:49] VITALS: BP 121/69
--- NOTE | 2019-12-27 04:00 | NUR ---
CHG bath Prepped pt for AICD placement, gave CHG bath at 0400. pt tolerated well, no adverse reactions.
--- NOTE | 2019-12-27 05:25 | NUR ---
Pt refused morning Lasix Pt refused Lasix stating 'she does not want to pee during her procedure.' Pt will take medication when she comes back to floor post procedure. Endorsed to day shift RN
[2019-12-27 05:39] VITALS: BP 116/67
[2019-12-27] MEDS: IPRATROPIUM BROM 0.5 MG/2.5ML INH SOL NEB SCH ×3 (06:00→19:18)
--- NOTE | 2019-12-27 06:50 | NUR ---
Dr. Jared Chen called and wanted a 500ml NS bolus to be done before operation. Before starting the bolus, SU Newton from [facility] called to receive the pt. Lamar said that Dr. Coleman wants to start early, and to bring the pt down. Informed the RN of the recent order from the doctor and that we had not given it to her. Lamar said to bring her down and she would start the bolus in the pre-op room. Endorsed pt over to Lamar in track repair laborer for the operation.
[2019-12-27 06:54] LABS: Basophils # (auto) 0 uL; Basophils % (auto) 0.8 % (0.0-2.0); Eosinophils # (auto) 0.5 uL; Eosinophils % (auto) 10.5 % (0.0-7.0); Hematocrit 36.7 % (36.0-46.0); Hemoglobin 12.2 g/dL (12.2-16.2); Lymphocytes # (auto) 1.2 uL; Lymphocytes % (auto) 24.8 % (10.0-50.0); Mean Corpuscular Hemoglobin 30.9 pg (28.0-32.0); Mean Corpuscular Hgb Conc. 33.3 g/dL (32.0-36.0); Mean Corpuscular Volume 92.8 fL (80.0-100.0); Monocytes # (auto) 0.6 uL; Monocytes % (auto) 12.8 % (0.0-12.0); Neutrophils # (auto) 2.5 uL; Neutrophils % (auto) 51.1 % (37.0-80.0); Nucleated Red Blood Cells % 0.1 %; Platelet Count (auto) 175 10^3/uL (140-450); Red Blood Cells 3.95 10^6/uL (4.0-5.20); Red Cell Distribution Width 13.4 % (11.8-14.3)
--- NOTE | 2019-12-27 06:55 | NUR ---
Closing note. Pt down in manager lab, will endorse to day shift to receive pt when she returns from operation.
--- NOTE | 2019-12-27 07:00 | NUR ---
0600 SCHEDULED MED NEB TX NOT ADMINISTERED. PT NOT IN ROOM.
[2019-12-27 07:13] LABS: BUN/Creatinine Ratio 20.4; Calcium 8.2 mg/dL (8.5-10.1); Potassium 4.1 mmol/L (3.5-5.1)
[2019-12-27] MEDS ORDERED: BACITRACIN INJ 50000 UNIT VIAL ONE (07:17)
[2019-12-27] MEDS ORDERED: VANCOMYCIN HCL 1000 MG VL ONE (07:17)
[2019-12-27] MEDS ORDERED: VANCOMYCIN 1GM/250ML 250 ML IV ONE (07:17)
[2019-12-27] MEDS ORDERED: fentaNYL CITRATE 100 MCG/2 ML VL ONE (07:18)
[2019-12-27] MEDS ORDERED: MIDAZOLAM HCL 1MG/1ML-2 ML VIAL ONE (07:18)
[2019-12-27] MEDS ORDERED: LIDOCAINE 2%HCL (LOCAL ANESTH.) INJ 20ML MDV ONE (07:22)
--- NOTE | 2019-12-27 08:00 | NUR ---
Patient still in laboratory apparatus glass blower.
[2019-12-27 08:24] VITALS: BP 116/67
--- NOTE | 2019-12-27 09:06 | NUR ---
pt refused vitals 9:00 am nurse notified
[2019-12-27] MEDS: ASPirin 81 mg TAB PO SCH (10:00)
--- NOTE | 2019-12-27 10:00 | NUR ---
Patient came back to the floor, pacemaker to the left upper chest, no any bleeding or discharge noted. Continue place ice pack over the surgery site and sling on her left arm, patient tolerated well. Will continue to monitor.
[2019-12-27] MEDS: FUROSEMIDE 40 MG/4 ML VIAL IV SCH ×2 (10:13→17:54)
[2019-12-27] MEDS: DOXYCYCLINE 100 MG TAB/CAP PO SCH ×2 (10:13→21:46)
[2019-12-27] MEDS: PANTOPRAZOLE 40 MG TAB PO SCH (10:13)
[2019-12-27] MEDS: DOCUSATE SOD 100 MG CAP PO SCH ×2 (10:13→21:46)
[2019-12-27] MEDS: CARVEDILOL 3.125 MG TAB PO SCH ×2 (10:14→21:46)
[2019-12-27] MEDS: SACUBITRIL-VALSARTAN 24mg/26mg TAB PO SCH ×2 (10:14→21:45)
[2019-12-27] MEDS: TIMOLOL MAL 0.5% OPTH(EYE) SOL 5ML EACHEYE SCH ×2 (10:15→21:46)
--- NOTE | 2019-12-27 11:28 | NUR ---
Left a message to Dr. Garrido regrading BP 94/37 HR 77 T 97.9 RR 14. Patient is drowsy, she can stated her name, know where she is at and know she just got a surgery. She stated not feeling well. Will continue to monitor.
--- NOTE | 2019-12-27 11:50 | NUR ---
Pt has been lying on her back, with slight tilt to the right since her operation. Pt denies being turned stating that she is sleeping fine and does not need to move. Educated pt on the reason and importance of moving, pt verbalized understanding and wanted to be left in her position. Will continue to monitor pt. Addendum: 12/28/19 at 0021 by Jane Cabezas RN time of 2350, NOC shift.
--- NOTE | 2019-12-27 12:08 | NUR ---
Recheck BP 140/66 HR 80. Patient feels better, will continue to monitor.
[2019-12-27 12:20] VITALS: BP 140/66
[2019-12-27 16:54] VITALS: BP 132/71
[2019-12-27] MEDS: VANCOMYCIN 1GM/250ML 250 ML IV SCH (18:58)
--- NOTE | 2019-12-27 19:00 | NUR ---
Opening Shift Note Assumed care of patient, awake and alert. Pt post procedure of AICD placement. Pt stated that she had pain of 6/10 from her incision area. Dressing was dry and intact. No drainage noted on dressing. Instructed on POC and to call for assist PRN, will continue to monitor for changes Q1hr and PRN. Pt in lowest possible position with bed rails x2. Call light within reach. Will continue to monitor.
[2019-12-27] MEDS: ALBUTEROL SULF 2.5 MG/0.5ML(0.5%) NEB SOLN NEB PRN (19:18)
[2019-12-27 20:00] VITALS: BP 133/73
[2019-12-27] MEDS: ACETAMINOPHEN 325 MG TAB PO PRN (20:19)
[2019-12-27 21:34] VITALS: BP 133/73
[2019-12-27] MEDS: LATANOPROST 0.005 % OPTH(EYE) SOL 2.5ML OP SCH (21:46)
[2019-12-28] VITALS (7 sets, daily range): BP systolic 123–135; BP diastolic 56–71
[2019-12-28] MEDS ORDERED: INFLUENZA QUAD 2019-2020 0.5ml SYRG IM ONE (06:24)
[2019-12-28] MEDS: FUROSEMIDE 40 MG/4 ML VIAL IV SCH ×2 (06:29→18:00)
[2019-12-28 06:30] LABS: Basophils # (auto) 0 uL; Basophils % (auto) 0.6 % (0.0-2.0); Eosinophils # (auto) 0.5 uL; Eosinophils % (auto) 8.9 % (0.0-7.0); Hematocrit 34.5 % (36.0-46.0); Hemoglobin 11.5 g/dL (12.2-16.2); Lymphocytes # (auto) 1.3 uL; Lymphocytes % (auto) 23.3 % (10.0-50.0); Mean Corpuscular Hemoglobin 30.9 pg (28.0-32.0); Mean Corpuscular Hgb Conc. 33.3 g/dL (32.0-36.0); Mean Corpuscular Volume 92.7 fL (80.0-100.0); Monocytes # (auto) 0.7 uL; Monocytes % (auto) 12.7 % (0.0-12.0); Neutrophils % (auto) 54.5 % (37.0-80.0); Platelet Count (auto) 145 10^3/uL (140-450); Red Blood Cells 3.72 10^6/uL (4.0-5.20); Red Cell Distribution Width 13.5 % (11.8-14.3); White Blood Cell 5.5 10^3/uL (4.4-10.8)
[2019-12-28] MEDS: VANCOMYCIN 1GM/250ML 250 ML IV SCH (06:36)
[2019-12-28] MEDS: IPRATROPIUM BROM 0.5 MG/2.5ML INH SOL NEB SCH ×3 (06:40→20:04)
[2019-12-28 06:54] LABS: Calcium 7.8 mg/dL (8.5-10.1); Magnesium 1.9 mg/dL (1.6-2.6); Potassium 4.1 mmol/L (3.5-5.1)
[2019-12-28 06:56] LABS: BUN/Creatinine Ratio 23.8
--- NOTE | 2019-12-28 07:03 | NUR ---
Closing note Pt in lowest possible position, call light within reach. Endorsed pt to SU Alex.
[2019-12-28] MEDS: DOCUSATE SOD 100 MG CAP PO SCH ×2 (09:23→21:50)
[2019-12-28] MEDS: CARVEDILOL 3.125 MG TAB PO SCH ×2 (09:23→21:51)
[2019-12-28] MEDS: ASPirin 81 mg TAB PO SCH (09:23)
[2019-12-28] MEDS: SACUBITRIL-VALSARTAN 24mg/26mg TAB PO SCH ×2 (09:23→21:50)
[2019-12-28] MEDS: PANTOPRAZOLE 40 MG TAB PO SCH (09:23)
[2019-12-28] MEDS: DOXYCYCLINE 100 MG TAB/CAP PO SCH ×2 (09:24→21:50)
[2019-12-28] MEDS: TIMOLOL MAL 0.5% OPTH(EYE) SOL 5ML EACHEYE SCH ×2 (09:24→21:50)
--- NOTE | 2019-12-28 14:28 | NUR ---
Left a message to Stan VERDE regarding order d/c home with HH. Awaiting to call back.
--- NOTE | 2019-12-28 15:19 | NUR ---
D/C Planning Per consult for home health safety evaluation and for CHF clinic. Faxed medical records to [facility]:) Fax: ). Placed followed up called to Elza from [facility]. Per Elza patient has been accepted and service to start within 24-48hrs upon d/c day. Faxed medical records requesting for them to referral patient to CHF clinic and to provide authorization to [facility] Fax:). Placed followed up called to [facility]:) advised her [facility] has accepted. Per FAMILIA Alvarenga authorization will be faxed to them . SU Alex was informed.
--- NOTE | 2019-12-28 15:30 | NUR ---
Dr. Fierro at bedside made aware of patient has episode of VT and patient is cleared to d/c home.
--- NOTE | 2019-12-28 15:31 | NUR ---
Per Dr. Fierro , Learning And Development Administrator will come to check device before patient d/c home today.
--- NOTE | 2019-12-28 17:43 | NUR ---
Spoke to Dr. Garrido regarding there is no one can pick patient up and she needs oxygen while transport back home. Received new order from Dr. 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
--- NOTE | 2019-12-28 17:50 | NUR ---
Per Dr. Garrido placed SS and patient can be picked up tomorrow.
--- NOTE | 2019-12-28 17:51 | NUR ---
MEHREEN (Stan) onccee regarding SS consult, awaiting to call back.
--- NOTE | 2019-12-28 17:58 | NUR ---
Received a call from Stan ISRAEL) stated will call [facility].
--- NOTE | 2019-12-28 18:06 | NUR ---
Sherri VERDE called back stated she left a message to a caregiver (ARSALAN) regarding she needs to hand picker patient and bring portable oxygen.
--- NOTE | 2019-12-28 18:09 | NUR ---
Left a message to Vernell # [phone], awaiting to call back.
--- NOTE | 2019-12-28 18:38 | NUR ---
Informed patient that if her caregiver will not come to pick her up, SS will call APS. Patient made aware. Awaiting for caregiver to call back.
--- NOTE | 2019-12-28 19:00 | NUR ---
Opening Shift Note Assumed care of patient, awake and alert. No S/S of distress/SOB, pt has pain in her incision site located on her left upper chest from a pacemaker inputted /. Instructed on POC and to call for assist PRN, will continue to monitor for changes Q1hr and PRN. Pt in lowest possible position, bed rails up x2. Call light within reach, pt to call for assistance to bedside commode. PT verbalized understanding. Will continue to monitor.
[2019-12-28] MEDS: LATANOPROST 0.005 % OPTH(EYE) SOL 2.5ML OP SCH (21:50)
[2019-12-29] MEDS: FUROSEMIDE 40 MG/4 ML VIAL IV SCH (05:24)
[2019-12-29 05:46] VITALS: BP 125/66
--- NOTE | 2019-12-29 06:03 | NUR ---
Called Caregiver, Vernell, and left a message. Pt needs to be picked up, if caregiver cannot come, SS needs to call APS.
--- NOTE | 2019-12-29 06:52 | NUR ---
Closing shift pt in lowest possible position with bed rails up x2. call light within reach. Will endorse to SU Simms.
--- NOTE | 2019-12-29 07:06 | NUR ---
Opening Shift Note Assumed care of patient, awake and alert. No S/S of distress/SOB or pain. Instructed on POC and to call for assist PRN, will continue to monitor for changes Q1hr and PRN. Bed is set in lowest locked position with side rails up x 2 for safety and call light is within reach.
[2019-12-29 08:03] VITALS: BP 133/67
[2019-12-29] MEDS: IPRATROPIUM BROM 0.5 MG/2.5ML INH SOL NEB SCH ×2 (08:18→11:22)
[2019-12-29 08:59] VITALS: BP 133/67
[2019-12-29] MEDS: DOCUSATE SOD 100 MG CAP PO SCH (09:38)
[2019-12-29] MEDS: TIMOLOL MAL 0.5% OPTH(EYE) SOL 5ML EACHEYE SCH (09:38)
[2019-12-29] MEDS: DOXYCYCLINE 100 MG TAB/CAP PO SCH (09:39)
[2019-12-29] MEDS: PANTOPRAZOLE 40 MG TAB PO SCH (09:39)
[2019-12-29] MEDS: ASPirin 81 mg TAB PO SCH (09:39)
[2019-12-29] MEDS: CARVEDILOL 3.125 MG TAB PO SCH (09:40)
[2019-12-29] MEDS: SACUBITRIL-VALSARTAN 24mg/26mg TAB PO SCH (09:40)
[2019-12-29 13:12] VITALS: BP 127/71
--- NOTE | 2019-12-29 14:07 | NUR ---
PATIENT DID NOT WANT TO GET UP WITH PT TODAY, SAID SHE WAS GOING HOME. SU HARDY WAS NOTIFIED. Addendum: 12/29/19 at 1408 by PRASHANTH VALLES PTT Amended: Links added.
--- NOTE | 2019-12-29 14:27 | NUR ---
Placed followed up called to FAMILIA Alvarenga from [facility] regarding oxygen for patient. Per FAMILIA Alvarenga portable oxygen will be deliver to patient and it was order from [facility]. SU Simms was informed.
--- NOTE | 2019-12-29 15:30 | NUR ---
Spoke to social work job [employer] In regards to a follow up in regards to oxygen delivery so we may proceed with discharge, Sherri stated she will follow up with company and retrieve an estimated time of arrival.
[2019-12-29 17:04] VITALS: BP 122/67
--- NOTE | 2019-12-29 17:15 | NUR ---
Oxygen delivered to patient's bedside Called cab services for patient, per cable tender the estimated time of arrival will be 18:20.
--- NOTE | 2019-12-29 17:45 | NUR ---
Discharge instructions given as ordered. Encourage to follow up with PMD as instructed. All questions and concerns addressed. Patient verbalized understanding. Medication reconciliation form completed and copy given to patient. Home medications held in Pharmacy returned to patient. IV removed with catheter intact, pressure dressing applied. Telemetry unit returned to ICU. Patient taken to vehicle via wheelchair with all personal belongings, accompanied by staff. No distress noted at time of departure.
--- NOTE | 2020-01-02 14:55 | NUR ---
Patient was accepted with [facility] [phone]
== END 2019-12-29 17:45 | disposition home health service (06) | DRG 223 ==
LOC: EDUNIT# 01:12 → EDBD 01:12 → ER 01:14 → TELE 01:15 → TELE-WESTW 09:19
PROVIDERS: ADMIT Nurse Practitioner; ATTEND Internal Medicine
PROC: 4A023N7 Measurement of Cardiac Sampling and Pressure, Left Heart, Percutaneous Approach (ICD-10-PCS; principal; 2019-12-26)
PROC: B211YZZ Fluoroscopy of Multiple Coronary Arteries using Other Contrast (ICD-10-PCS; 2019-12-26)
PROC: B215YZZ Fluoroscopy of Left Heart using Other Contrast (ICD-10-PCS; 2019-12-26)
PROC: 3E0234Z Introduction of Serum, Toxoid and Vaccine into Muscle, Percutaneous Approach (ICD-10-PCS; 2019-12-26)
PROC: 0JH608Z Insertion of Defibrillator Generator into Chest Subcutaneous Tissue and Fascia, Open Approach (ICD-10-PCS; 2019-12-27)
PROC: 02HK3KZ Insertion of Defibrillator Lead into Right Ventricle, Percutaneous Approach (ICD-10-PCS; 2019-12-27)
DX: I11.0 Hypertensive heart disease with heart failure (principal); J44.1 Chronic obstructive pulmonary disease with (acute) exacerbation; J96.10 Chronic respiratory failure, unspecified whether with hypoxia or hypercapnia; I47.2 Ventricular tachycardia; I25.10 Atherosclerotic heart disease of native coronary artery without angina pectoris; I50.23 Acute on chronic systolic (congestive) heart failure; E66.01 Morbid (severe) obesity due to excess calories; I50.82 Biventricular heart failure; K21.9 Gastro-esophageal reflux disease without esophagitis; H40.9 Unspecified glaucoma; E78.5 Hyperlipidemia, unspecified; Z83.3 Family history of diabetes mellitus; Z99.81 Dependence on supplemental oxygen; Z95.810 Presence of automatic (implantable) cardiac defibrillator; Z23 Encounter for immunization
CPT/HCPCS: 33249; 36415; 36600; 71045; 80048; 80053; 81001; 82550; 82553; 82805; 83735; 83880; 84443; 84484; 85025; 85610; 85730; 93005; 93306; 93458; 94640; 94660; 99152; 99153; G0378; J2250; J3490; Q9956; Q9967

== ENCOUNTER 2019-12-31 03:17 | Emergency (ER) | payer OTHER ==
[~2019-12-31] VITALS: Ht 157.5 cm; Wt 90.7 kg
[~2019-12-31 03:17] MED LIST changes: +CARV6.2551 PO; -IBUP800T24 PO; +LATA0.0015 OP; -LATA0.0019 OP
[2019-12-31 04:41] VITALS: BP 152/81
== END 2019-12-31 05:31 | disposition home or self-care (01) ==
LOC: ER 03:17 → EDBD 03:17 → ER 05:31
DX: S21.112A Laceration without foreign body of left front wall of thorax without penetration into thoracic cavity, initial encounter (principal); I11.0 Hypertensive heart disease with heart failure; I50.9 Heart failure, unspecified; E78.5 Hyperlipidemia, unspecified; X58.XXXA Exposure to other specified factors, initial encounter; Y93.89 Activity, other specified; Y99.8 Other external cause status; Y92.89 Other specified places as the place of occurrence of the external cause

== ENCOUNTER 2021-10-20 19:53 | Inpatient (IN) | payer OTHER, MEDICAID ==
[~2021-10-20] VITALS: Ht 157.5 cm; Wt 106.3 kg
[~2021-10-20 19:53] MED LIST changes: +AMLO-489 PO; -AMLO5TAB15 PO; -ENAL10TA PO; +ENAL10TA12 PO; -LATA0.0015 OP; +LATA0.0019 OP
[2021-10-20] MEDS ORDERED: methylPREDNISolone SOD SUCC 125 MG/2 ML VL IV ONE (20:15)
[2021-10-20 21:52] LABS: Basophils # (auto) 0.1 10 ^3/uL (0-0.2); Basophils % (auto) 2.2 % (0.0-2.0); Eosinophils # (auto) 0.1 10 ^3/uL (0-0.8); Eosinophils % (auto) 4.7 % (0.0-7.0); Hematocrit 38.1 % (36.0-46.0); Hemoglobin 12.3 g/dL (12.2-16.2); Lymphocytes # (auto) 0.6 10 ^3/uL (0.4-5.4); Lymphocytes % (auto) 22.4 % (10.0-50.0); Mean Corpuscular Hemoglobin 31.2 pg (28.0-32.0); Mean Corpuscular Hgb Conc. 32.4 g/dL (32.0-36.0); Mean Corpuscular Volume 96.6 fL (80.0-100.0); Monocytes # (auto) 0.4 10 ^3/uL (0-1.3); Monocytes % (auto) 14.2 % (0.0-12.0); Neutrophils # (auto) 1.6 10 ^3/uL (1.6-8.6); Neutrophils % (auto) 56.5 % (37.0-80.0); Nucleated Red Blood Cells % 0.1 %; Red Blood Cells 3.94 10^6/uL (4.0-5.20); Red Cell Distribution Width 15.7 % (11.8-14.3); White Blood Cell 2.8 10^3/uL (4.4-10.8)
[2021-10-20 22:14] LABS: Calcium 8.3 mg/dL (8.5-10.1); Magnesium 2.8 mg/dL (1.6-2.6)
[2021-10-20 22:30] LABS: BUN/Creatinine Ratio 15.5; Bilirubin, Total 0.9 mg/dL (0.2-1.0); Total Protein 6.9 g/dL (6.4-8.2)
[2021-10-20] MEDS ORDERED: FUROSEMIDE 40 MG/4 ML VIAL IV ONE (23:00)
[2021-10-20] MEDS ORDERED: NITROGLYCERIN 0.4 MG SL TAB SL PRN (23:30)
[2021-10-20] MEDS ORDERED: MORPHINE SULFATE INJECTION 2 MG/ML SYRG IV PRN (23:30)
[2021-10-20] MEDS ORDERED: ACETAMINOPHEN 325 MG TAB PO PRN (23:45)
[2021-10-20] MEDS ORDERED: TEMAZEPAM 15 MG CAP PO PRN (23:45)
[2021-10-20] MEDS ORDERED: ONDANSETRON HCL 4 MG/2 ML VIAL IV PRN (23:45)
[2021-10-20] MEDS ORDERED: ENOXAPARIN SOD 100 MG/1 ML SYRINGE SC ONE (23:45)
[2021-10-21] VITALS (7 sets, daily range): BP systolic 109–143; BP diastolic 57–89
[2021-10-21] MEDS ORDERED: ALBUTEROL SULF 2.5 MG/0.5ML(0.5%) NEB SOLN NEB PRN (01:00)
[2021-10-21] MEDS ORDERED: GAB100C PO (03:41)
[2021-10-21] MEDS ORDERED: TRAZ100T3 PO (03:41)
[2021-10-21] MEDS ORDERED: MOME1SPR2 NAS (03:41)
[2021-10-21] MEDS ORDERED: ALBU108A5 INH (03:41)
[2021-10-21] MEDS: FUROSEMIDE 20 MG/2 ML VIAL IV SCH ×2 (05:14→18:02)
[2021-10-21 09:36] LABS: Mean Corpuscular Hemoglobin 31.6 pg (28.0-32.0)
[2021-10-21 09:39] LABS: Hematocrit 36.3 % (36.0-46.0); Hemoglobin 11.9 g/dL (12.2-16.2); Mean Corpuscular Hgb Conc. 32.7 g/dL (32.0-36.0); Mean Corpuscular Volume 96.8 fL (80.0-100.0); Red Blood Cells 3.75 10^6/uL (4.0-5.20); Red Cell Distribution Width 15.9 % (11.8-14.3)
[2021-10-21 09:43] LABS: Band Neutrophils % (manual) 0; Basophils % (manual) 0 (0.0-2.0); Blast Cells 0; Eosinophils % (manual) 0 (0-7); Metamyelocytes % 0; Myelocytes % 0; Promyelocytes % 0; Reactive Lymphocytes 0; White Blood Cell 1.7 10^3/uL (4.4-10.8)
[2021-10-21 09:51] LABS: Calcium 8.3 mg/dL (8.5-10.1); Potassium 3.9 mmol/L (3.5-5.1)
[2021-10-21 09:57] LABS: Albumin 2.9 g/dL (3.4-5.0); BUN/Creatinine Ratio 16.4; Total Protein 6.2 g/dL (6.4-8.2)
[2021-10-21] MEDS ORDERED: PANTOPRAZOLE 40 MG TAB PO SCH (10:00)
[2021-10-21] MEDS ORDERED: amLODIPine BESYLATE 5 MG TAB PO SCH (10:00)
[2021-10-21] MEDS ORDERED: CARVEDILOL 3.125 MG TAB PO SCH (10:00)
[2021-10-21] MEDS ORDERED: ASPirin 81 mg TAB PO SCH (10:00)
[2021-10-21 12:41] LABS: Lymphocytes % (manual) 16 (10.0-50.0); Monocytes % (manual) 3 (0-12)
[2021-10-21] MEDS ORDERED: ATORVASTATIN 20 MG TAB PO SCH (22:00)
== END 2021-10-21 21:12 | disposition home health service (06) | DRG 291 ==
LOC: EDBD 19:53 → ER 19:59 → TELE 10-21 00:50 → TELE-CENTR 10-21 02:14
PROVIDERS: ADMIT Nurse Practitioner; ATTEND Internal Medicine
DX: I13.0 Hypertensive heart and chronic kidney disease with heart failure and stage 1 through stage 4 chronic kidney disease, or unspecified chronic kidney disease (principal); I26.99 Other pulmonary embolism without acute cor pulmonale; I50.23 Acute on chronic systolic (congestive) heart failure; E43 Unspecified severe protein-calorie malnutrition; E46 Unspecified protein-calorie malnutrition; J96.10 Chronic respiratory failure, unspecified whether with hypoxia or hypercapnia; J98.11 Atelectasis; Z68.41 Body mass index [BMI] 40.0-44.9, adult; I42.9 Cardiomyopathy, unspecified; J44.9 Chronic obstructive pulmonary disease, unspecified; I48.91 Unspecified atrial fibrillation; I34.0 Nonrheumatic mitral (valve) insufficiency; E78.5 Hyperlipidemia, unspecified; E66.9 Obesity, unspecified; R79.89 Other specified abnormal findings of blood chemistry; K21.9 Gastro-esophageal reflux disease without esophagitis; G62.9 Polyneuropathy, unspecified; H40.9 Unspecified glaucoma; R77.8 Other specified abnormalities of plasma proteins; Z20.822 Contact with and (suspected) exposure to COVID-19; Z95.810 Presence of automatic (implantable) cardiac defibrillator; Z86.16 Personal history of COVID-19; Z87.01 Personal history of pneumonia (recurrent); Z83.3 Family history of diabetes mellitus; Z98.891 History of uterine scar from previous surgery; I27.20 Pulmonary hypertension, unspecified; N18.30 Chronic kidney disease, stage 3 unspecified; Z99.81 Dependence on supplemental oxygen
CPT/HCPCS: 36415; 71045; 78582; 80053; 83735; 83880; 84484; 85007; 85025; 85027; 85379; 87081; 87426; 93306; 96372; 96374; 96375; G0378